=== PATIENT | male | born 2005 | race Two or more races ===

== ENCOUNTER 2024-09-19 11:04 | Emergency (ER) | payer MEDICAID, SELFPAY ==
[2024-09-19 11:04] VITALS: BMI 24.6
--- NOTE | 2024-09-19 11:05 | EDNOTE_ITS ---
Lower Extremity Injury RME/HPI General Chief Complaint: Extremity Injury, Lower Stated Complaint: RIGHT KNEE PAIN AND SWELLING (OLD INJURY) Time Seen by Provider: 09/19/24 11:04 Source: patient Arrival date/time: 09/19/24 11:04 Mode of arrival: ambulatory Limitations: no limitations RME / HPI RME / HPI Narrative: Here with worsening right knee pain since yesterday. This became worse after a hike. He denies falls or twisting injury. He has a known meniscus injury. He had had right knee pain for 1 year, has a pending referral to orthopedics. Related Data Previous Rx's ?Medication ?Instructions ?Recorded ibuprofen 600 mg tablet 600 mg PO Q8H PRN fever or p ain 06/06/23 #30 tabs hydrocodone 5 mg-acetaminophen 325 1 tab PO Q8H PRN pa in #7 tabs 09/19/24 mg tablet ibuprofen 600 mg tablet 600 mg PO Q8H PRN pain #30 t abs 09/19/24 Allergies Allergy/AdvReac Type Severity Reaction Status Date / Time No Known Allergies Allergy Verified 09/19/24 11:06 Review of Systems Review of Systems Systems Reviewed: All systems reviewed, normal except as documented ED Exam General Limitations: Present no limitations General appearance: Present alert and in no apparent distress Head Head exam: Present atraumatic Eye Eye exam: Present normal appearance, PERRL and EOMI ENT ENT exam: Present normal exam, normal oropharynx and mucous membranes moist Neck Neck exam: Present normal inspection, full ROM and trachea midline Chest Chest inspection: Present normal inspection and symmetric chest wall rise Respiratory Respiratory exam: Present normal lung sounds bilaterally Cardiovascular Cardiovascular exam: Present regular rate, normal rhythm and normal heart sounds Abdominal Exam Abdominal exam: Present soft and normal bowel sounds Extremities Exam Extremities exam: Present full ROM and other (Diffuse edema of the left knee. No warmth is appreciated. No joint laxity or crepitus is present. No open wounds.) Back Exam Back exam: Present normal inspection and full ROM Neurological Exam Neurological exam: Present alert and oriented X3 Psychiatric Psychiatric exam: Present normal affect and normal mood Skin Skin exam: Present warm, dry, intact and normal color Course Quality Measures none Orders Category Date Time Status HYDROcodone*/APAP 5/325 [[place] 5/325] Med 09/19/24 11:05 Discontinued 1 tab PO X1 ONE Vital Signs Vital signs: Vital Signs Temperature 98.2 F 09/19/24 11:22 Pulse Rate 73 09/19/24 11:22 Respiratory Rate 18 09/19/24 11:22 Blood Pressure 116/77 09/19/24 11:22 Pulse Oximetry (%) 98 09/19/24 11:22 Oxygen Delivery Method Room Air 09/19/24 11:22 Extremity Injury, Lower MDM Narrative MDM Narrative:: 19 old male is here today with a known left knee meniscal injury. He states his pain got worse after he went for a hike yesterday. He had no fall or injury. No twisting motions. He is wearing a hinged knee brace. He has diffuse swelling of the left knee. He has a pending referral to orthopedics. Patient is self ambulating without assistance. His exam is benign. He is given a dose of [place] for pain here. He will be discharged from the ER. He agrees to follow-up with his primary care provider and orthopedics as planned. Return at anytime for any worsening or emergent changes. Patient data External records reviewed:: None Clinical information provided by:: patient Social determinants that could affect healthcare access:: none Patient has the following chronic illnesses:: n/a How is presenting disease/condition affected by chronic disease/condition?: no chronic disease Evaluation data The following diagnostics were reviewed and interpreted by me:: other (specify) (n/a) Lab and/or radiology exams considered but not ordered:: n/a Interpretation Summary: n/a Medications / Prescriptions Medications or Prescriptions considered but not ordered:: n/a Medication administrations:: Medication Administration History Discontinued Medications Hydrocodone Bitart/Acetaminophen (Hydrocodone/Apap 5/325 Tablet) 1 tab PO X1 ONE Stop: 09/19/24 11:06 Last Admin: 09/19/24 11:23 Dose: 1 tab Documented By: MF See above Consultations Consultation(s) initiated? (list below): No Diagnosis Extremity Injury, Lower Differential Diagnosis: acute internal derangement of knee Most likely diagnosis given after review of the tests above:: Acute knee pain, meniscal injury Admission Indicated Admission indicated?: not indicated Admission Request Was there a request for admission?: No Disposition Plan Disposition Plan: Discharge Discharge Attestation Discharge Attestation: The patient and all family members were given an opportunity to ask questions and understood the discharge instructions. Discharge instructions specifically effects, indications for sooner follow up or return to the emergency department, and the expected course of current diagnosis. Patient condition: Stable Discharge Plan Plan Patient Disposition: HOME (Self Care) Patient condition on transfer: Stable Prescriptions/Referrals Prescriptions/Med Rec: New ibuprofen 600 mg tablet 600 mg PO Q8H PRN (Reason: pain) Qty: 30 0RF hydrocodone-acetaminophen 5-325 mg tablet 1 tab PO Q8H MDD 3 PRN (Reason: pain) Qty: 7 0RF No Action ibuprofen 600 mg tablet 600 mg PO Q8H PRN (Reason: fever or pain) Qty: 30 0RF Problem List Clinical Impression: Knee pain, right Patient/Caregiver Discharge Instructions Education Materials: ED RICE Additional Instructions: - Use the provided medications as prescribed. - Continue using your knee brace. - Follow-up with orthopedics as planned. - Return here as needed for any worsening or emergent changes. Print Language: Bruneian Stand Alone Forms: [facility] Award Info., Patient Portal Info Letter
[2024-09-19 11:22] VITALS: BP 116/77; PULSE 73; RESP 18; TEMP 36.8; O2SAT 98
[2024-09-19] MEDS: HYDROcodone/APAP 5/325 TABLET 1 TAB PO (11:23)
== END 2024-09-19 11:50 | disposition home or self-care (01) ==
LOC: SERX 12:08
PROVIDERS: Emergency Provider Emergency Medicine; Referring Provider Emergency Medicine
DX: M25.561 Pain in right knee (principal)
CPT/HCPCS: 99283; A9270